=== PATIENT | male | born 1990 | race Caucasian/White ===

== ENCOUNTER 2020-05-15 02:11 | Emergency (ER) | payer MEDICAID ==
[~2020-05-15] VITALS: Ht 170.2 cm; Wt 79.5 kg
[2020-05-15 02:27] VITALS: BP 137/83
[2020-05-15] MEDS ORDERED: DIVA-112 PO (07:33)
[2020-05-15] MEDS ORDERED: LEVE500T53 PO (07:33)
== END 2020-05-15 02:34 | disposition left against medical advice (07) ==
LOC: EMS 02:16
DX: G40.909 Epilepsy, unspecified, not intractable, without status epilepticus (principal); R00.0 Tachycardia, unspecified; F15.10 Other stimulant abuse, uncomplicated; F17.210 Nicotine dependence, cigarettes, uncomplicated
CPT/HCPCS: 99283; Z7502

== ENCOUNTER 2020-05-15 07:02 | Emergency (ER) | payer MEDICAID ==
[~2020-05-15] VITALS: Ht 170.2 cm; Wt 83.5 kg
[2020-05-15] MEDS ORDERED: DIVA-112 PO (07:33)
[2020-05-15] MEDS ORDERED: LEVE500T53 PO (07:33)
[2020-05-15] MEDS: KETOROLAC TROMETHAMINE 30 MG/ML VIAL IVP ONE (08:02)
[2020-05-15] MEDS: LevETIRAcetam 1,000 MG in DEXTROSE 5%-WATER 100 ML IV ONE (08:03)
[2020-05-15] MEDS: VALPROATE SODIUM 1,000 MG in DEXTROSE 5%-WATER 100 ML IV ONE (08:27)
[2020-05-15 09:22] VITALS: BP 132/69
[2020-05-15] MEDS: ALBUTEROL SULFATE HFA 90 MCG/PUFF 8 GM INHALER IH ONE (09:29)
== END 2020-05-15 10:10 | disposition home or self-care (01) ==
LOC: EMS 07:05
DX: G40.909 Epilepsy, unspecified, not intractable, without status epilepticus (principal); R51.9 Headache, unspecified; J45.909 Unspecified asthma, uncomplicated; F32.9 Major depressive disorder, single episode, unspecified; F19.90 Other psychoactive substance use, unspecified, uncomplicated
CPT/HCPCS: 94640; 96365; 96367; 96375; 99284; J0712; J1885; J3490; J7060; J3535